=== PATIENT | female | born 1945 | race Caucasian/White ===

== ENCOUNTER 2018-07-17 23:16 | Observation (INO) ==
[2018-07-17] MEDS ORDERED: Ketorolac Inj 30 MG/ML (IVP) Vial IV.PUSH ONE (23:49)
--- NOTE | 2018-07-17 23:54 | ED ---
HPI General Chief complaint: Abdominal Pain Stated complaint: lt side pain Time Seen by Provider: 07/17/18 23:45 Source: patient Mode of arrival: ambulatory Limitations: no limitations History of Present Illness HPI narrative: 72yo F with PMH of frequent UTIs here with c/o left sided flank pain radiating to left lower abdomen about 9pm tonight. Associated with nausea. She is currently on cefdinir and pyridium. Denies any fever, chest pain, sob, vomiting, focal weakness or numbness. Related Data Home Medications Medication Instructions Recorded Confirmed No Known Home Medications 07/17/18 07/17/18 Allergies Allergy/AdvReac Type Severity Reaction Status Date / Time morphine Allergy Severe Nausea/Vomi Verified 07/17/18 23:26 ting butorphanol Allergy Mild ANXIETY Verified 07/17/18 23:26 Review of Systems ROS: all other systems reviewed are negative [facility] Medical History Medical History HTN (hypertension) (Acute) History of kidney infection (Acute) Hx of recurrent urinary tract infection (Acute) Pneumonia (Acute) Surgical History Surgical History No history of previous surgery (Acute) Social History Social History Substance History: No History of Abuse Second Hand Smoke Exposure: No Smoking Status: Never smoker How Often Do You Have a Drink Containing Alcohol: 2 to 4 times a month [facility] within the Last 8 Weeks: No Recent Out of Country Travel within the Last 8 Weeks: No Immunization History Tetanus Immunization: <5 Years Exam Narrative Exam Narrative: GENERAL: 72yo F in moderate distress. SKIN: Focused skin assessment warm/dry. HEAD: Atraumatic. Normocephalic. EYES: Pupils equal and round. No scleral icterus. No injection or drainage. ENT: No nasal bleeding or discharge. Mucous membranes pink and moist. NECK: Trachea midline. No JVD. CARDIOVASCULAR: Regular rate and rhythm. No murmur appreciated. RESPIRATORY: No accessory muscle use. Clear to auscultation. Breath sounds equal bilaterally. GASTROINTESTINAL: Abdomen soft, suprapubic ttp. LLQ ttp. BACK: +CVA tenderness on left. MUSCULOSKELETAL: No obvious deformities. No clubbing. No cyanosis. No edema. NEUROLOGICAL: Awake and alert. No obvious cranial nerve deficits. Motor grossly within normal limits. Normal speech. PSYCHIATRIC: Appropriate mood and affect; insight and judgment normal. Course Initial Documented Vital Signs Temperature 98.4 F 07/17/18 23:27 Pulse Rate 86 07/17/18 23:27 Respiratory Rate 20 07/17/18 23:27 Blood Pressure 224/121 H 07/17/18 23:27 Pulse Oximetry 97 07/17/18 23:27 Last Documented Vital Signs Temperature 97.6 F 07/19/18 00:00 Pulse Rate 80 07/19/18 00:00 Respiratory Rate 18 07/19/18 00:00 Blood Pressure 130/64 07/19/18 00:00 Pulse Oximetry 95 07/19/18 00:00 Medical Decision Making [facility] Narrative Medical decision making narrative: 72yo F with frequent UTIs here with left flank pain radiating to left lower abdomen today. Pt is a lot of pain and has nausea as well. Given toradol and zofran. Pain improved but returned. Said morphine gave her nausea and vomiting before but willing to try dilaudid so 0.5mg of dialaudid given. Labs reviewed, no leukocytosis. H/H normal. Creatinine normal. CT a/p- showed 2mm distal left ureteral calculi with mild left hydroureter and hydronephrosis. UA positive for nitrate, pt given ceftriaxone. Pt given another dose of zofran and dilaudid but is still in pain and nauseous. Pt with an infected stone and obstructive uropathy with pain and nausea that is not controlled so will need to admit to the hospital. Medical Screen Exam Complete: Yes Emergency Medical Condition: Yes Differential Diagnosis Differential Diagnosis: Pyeloneprhitis vs. nephrolithiasis vs. diverticulitis Lab Data Result diagrams: 07/17/18 23:43 07/17/18 23:43 Lab Results 07/17/18 07/17/18 07/17/18 Range/Units 23:43 23:43 23:43 CBC w Diff Auto diff final WBC 6.8 (4.0-11.0) th/mm3 RBC 4.79 (4.00-5.30) mil/mm3 Hgb 13.3 (11.6-15.3) gm/dL Hct 40.9 (35.0-46.0) % MCV 85.4 (80.0-100.0) fL MCH 27.8 (27.0-34.0) pg MCHC 32.6 (32.0-36.0) % RDW 12.5 (11.6-17.2) % Plt Count 356 (150-450) th/mm3 MPV 8.1 (7.0-11.0) fL Neut % (Auto) 57.2 (16.0-70.0) % Lymph % (Auto) 30.0 (9.0-44.0) % [place] % (Auto) 6.5 (0.0-8.0) % Eos % (Auto) 5.3 H (0.0-4.0) % Baso % (Auto) 1.0 (0.0-2.0) % Neut # (Auto) 3.9 (1.8-7.7) th/mm3 Lymph # (Auto) 2.0 (1.0-4.8) th/mm3 [place] # (Auto) 0.4 (0.0-0.9) th/mm3 Eos # (Auto) 0.4 (0.0-0.4) th/mm3 Baso # (Auto) 0.1 (0.0-0.2) th/mm3 WBC Differential . Differential Comment . Sodium 142 (136-145) meq/L Potassium 3.5 (3.5-5.1) meq/L Chloride 107 (98-107) meq/L Carbon Dioxide 27.3 (21.0-32.0) meq/L Anion Gap 8 (5-15) meq/L BUN 11 (7-18) mg/dL Creatinine 0.84 (0.50-1.00) mg/dL Estimated GFR 67 L (>89) mL/min Random Glucose 146 H (74-106) mg/dL Calcium 9.0 (8.5-10.1) mg/dL Total Bilirubin 0.3 (0.2-1.0) mg/dL AST 43 H (15-37) U/L ALT 73 H (10-53) U/L Alkaline Phosphatase 95 (45-117) U/L Total Protein 7.7 (6.4-8.2) g/dL Albumin 3.9 (3.4-5.0) g/dL Lipase 130 (73-393) U/L Urine Color [place] H (Yellw/Straw) Urine Clarity Clear (Clear) Urine pH 6.0 (5.0-8.5) Ur Specific [place] 1.025 (1.002-1.035) Urine Protein 30 H (Neg-Trace) mg/dL Urine Glucose (UA) 100 H (Negative) mg/dL Urine Ketones Trace H (Negative) mg/dL Urine Occult Blood Small H (Negative) Urine Nitrate Positive H (Negative) Urine Bilirubin Negative (Negative) Urine Urobilinogen 4.0 H (Less than 2) mg/dL Ur Leukocyte Esterase Trace H (Negative) Urine RBC 4-15 H (0-3) /hpf Urine WBC 9-20 H (0-5) /hpf Ur Squamous Epith Cells 0-5 (0-5) /hpf Amorphous Sediment Few H (None) /hpf Urine Mucus Few H (Occasional) /lpf Micro UA Comment Culture indicated Ur Microscopic Review Microscopic reviewed Urine Culture Comments Culture indicated Imaging Data Radiologist's impression: Abdomen/Pelvis CT 07/18/18 00:11 CONCLUSION: 1. 2 mm distal left ureteral calculus. Mild left hydroureter. Mild left hydronephrosis. 2. Punctate renal calculi seen bilaterally. 3. Large gallstone in the gallbladder. No pericholecystic inflammatory changes. Discharge Plan Discharge Disposition Patient Disposition: ED Admit(ED Internal Use Only) Discharge Order Discharge Orders: ED Use Only Admit Order (Routine); Ordered 07/18/18 Ordered By: Kanchan Curran Discharge Details Diagnosis: Obstructive uropathy Physicians Team ED Provider: Kanchan Curran Primary Care Provider: Yobani Zhao Attending Provider: Sean Dee Status ED Status: Left Department Discharge Information Discharge Date/Time: 07/18/18 03:55
[2018-07-18 00:02] LABS: Baso # (Auto) 0.1 th/mm3 (0.0-0.2); Eos # (Auto) 0.4 th/mm3 (0.0-0.4); Eos % (Auto) 5.3 % (0.0-4.0); Hematocrit 40.9 % (35.0-46.0); Hemoglobin 13.3 gm/dL (11.6-15.3); Mean Corpuscular HGB Conc 32.6 % (32.0-36.0); Mean Corpuscular Hemoglobin 27.8 pg (27.0-34.0); Mean Corpuscular Volume 85.4 fL (80.0-100.0); Mean Platelet Volume 8.1 fL (7.0-11.0); Mono # (Auto) 0.4 th/mm3 (0.0-0.9); Mono % (Auto) 6.5 % (0.0-8.0); Neut # (Auto) 3.9 th/mm3 (1.8-7.7); Neut % (Auto) 57.2 % (16.0-70.0); Platelet Count 356 th/mm3 (150-450); Red Blood Count 4.79 mil/mm3 (4.00-5.30); Red Cell Distribution Width 12.5 % (11.6-17.2); White Blood Count 6.8 th/mm3 (4.0-11.0)
[2018-07-18 00:07] LABS: Bilirubin,Urine Negative (Negative); Clarity,Urine Clear (Clear); Glucose,Urine (UA) 100 mg/dL (Negative); Leukocyte Esterase,Urine Trace (Negative); Nitrite,Urine Positive (Negative); Specific Gravity,Urine 1.025 (1.002-1.035)
[2018-07-18 00:11] LABS: Chloride 107 meq/L (98-107); Potassium 3.5 meq/L (3.5-5.1); Sodium 142 meq/L (136-145)
[2018-07-18 00:15] LABS: Albumin 3.9 g/dL (3.4-5.0); Anion Gap 8 meq/L (5-15); Blood Urea Nitrogen 11 mg/dL (7-18); Carbon Dioxide 27.3 meq/L (21.0-32.0); Glucose,Random 146 mg/dL (74-106); Lipase 130 U/L (73-393)
[2018-07-18 00:16] LABS: Color,Urine Orange (Yellw/Straw)
[2018-07-18 00:18] LABS: Alanine Aminotransferase 73 U/L (10-53); Aspartate Aminotransferase 43 U/L (15-37); Glomerular Filtration Rate 67 mL/min (>89)
[2018-07-18 00:19] LABS: Total Protein 7.7 g/dL (6.4-8.2)
[2018-07-18 00:20] LABS: Amorphous Sediment,Urine Few /hpf; Mucus,Urine Few /lpf (Occasional); Squamous Epithelial Cell,Urine 0-5 /hpf (0-5)
[2018-07-18 00:21] LABS: Alkaline Phosphatase 95 U/L (45-117)
[2018-07-18] MEDS ORDERED: HYDROmorphone PF Inj 0.5 MG/0.5 ML Syringe IV.PUSH STA (00:36)
--- NOTE | 2018-07-18 00:36 | CT ---
EXAM DATE: 07/18/2018 12:25 AM EST AGE/SEX: 72 years / Female INDICATIONS: Left flank pain. CLINICAL DATA: This is the patient's initial encounter. Patient reports that signs and symptoms have been present for 1 day and indicates a pain score of 10/10. MEDICAL/SURGICAL HISTORY: None. None. RADIATION DOSE: 11.13 CTDI (mGy) COMPARISON: No prior exams available for comparison. TECHNIQUE: Multiple contiguous axial images were obtained through the abdomen. Images were obtained using multiple row detector helical technique. Using automated exposure control and adjustment of the mA and/or kV according to patient size, radiation dose was kept as low as reasonably achievable to o btain optimal diagnostic quality images. DICOM format image data is available electronically for rev iew and comparison. FINDINGS: Lower Lungs: The visualized lower lungs are clear. Liver: Small calcifications centrally in the liver. Diffuse hypodensity suggesting hepatic steatosis with relative sparing around the gallbladder fossa. Large 3 cm calcified gallstone in the gallbladder . No pericholecystic inflammatory changes. Spleen: Multiple calcified granulomas in the spleen. Pancreas: Unremarkable without mass or calcification. Kidneys: 2 mm calculus in the distal left ureter just above the ureterovesical junction. Mild diffus e left hydroureter. Mild left hydronephrosis. 2 mm calculus in the upper pole of the left kidney and 2 mm calculus in the anterior midpole of the left kidney. 2 mm calculus in the lower pole of the righ t kidney. No evidence of hydronephrosis on the right. Adrenal Glands: Unremarkable. Aorta: Aortic calcification. Aortic diameter within normal limits. Bowel/Mesentery: Scattered colonic diverticula. No evidence of bowel dilatation. No free air or free fluid. Appendix within normal limits. Abdominal Wall: Intact. Retroperitoneum: Unremarkable. Bladder: Contours are smooth. Reproductive Organs: No abnormal masses or calcifications seen. Inguinal: The inguinal region is unremarkable without evidence of adenopathy. Bony Structures: Unremarkable. CONCLUSION: 1. 2 mm distal left ureteral calculus. Mild left hydroureter. Mild left hydronephrosis. 2. Punctate renal calculi seen bilaterally. 3. Large gallstone in the gallbladder. No pericholecystic inflammatory changes. Electronically signed by: Rashel Eric MD 07/18/2018 12:35 AM EST
[2018-07-18] MEDS ORDERED: HYDROmorphone PF Inj 0.5 MG/0.5 ML Syringe IV.PUSH ONE (02:17)
[2018-07-18] MEDS ORDERED: Naloxone Inj 0.4 MG/ML Vial IV.PUSH PRN (02:50)
[2018-07-18] MEDS ORDERED: Acetaminophen 325 MG Tablet PO PRN (02:51)
[2018-07-18] MEDS ORDERED: Bisacodyl 10 MG Supp RECTAL PRN (02:51)
[2018-07-18] MEDS: Sod Chloride 0.9% Inj 1,000 ML IV.CONT SCH ×3 (03:08→22:24)
[2018-07-18] MEDS ORDERED: HYDROmorphone PF Inj 2 MG/ML Vial IV.PUSH PRN ×2 (10:06→10:53)
--- NOTE | 2018-07-18 11:02 | P.HPIM ---
History of Present Illness Primary Care Physician: Yobani Zhao MD Chief Complaint: Nausea, pain History of Present Illness: The patient is a 72-year-old female with past medical history pneumonia, UTI and hypertension who is presenting to the hospital with severe nausea and vomiting as well as left-sided pain. The patient states that she has a history of frequent urinary tract infections. She says over the past few days her back started hurting her on the left side. She also develops nausea and vomiting at that time. She says the pain got quite severe and started at the left lower back and radiated to the front and down her pelvis. She says that she has not been able to eat anything and has been vomiting regularly. She said she had some antibiotics at home that she tried taking. She says she does have a urologist and last saw the urologist about 3 months ago. The patient currently rates her pain as an 8 out of 10 in severity. She says she would like to try drinking a Coke. Review of Systems All other systems reviewed negative except as stated in HPI [facility] - History History Provided By: Patient - Medical History Medical History: Medical History (Last Updated 07/18/18 @ 10:59 by Sean Dee DO) HTN (hypertension) History of kidney infection Hx of recurrent urinary tract infection Pneumonia - Surgical History Surgical History: Surgical History (Last Updated 07/17/18 @ 23:39 by Bell Rice RN) No history of previous surgery - Social History I have reviewed the patient's Social History: Yes - Tobacco History Second Hand Smoke Exposure: No Tobacco Use In Past 30 Days: No Smoking Status: Never smoker - Alcohol History How Often Do You Have a Drink Containing Alcohol: 2 to 4 times a month - Substance Use History Substance History: No History of Abuse - Travel History Recent Travel in the [place] Within the Last 8 Weeks: No Recent Travel Out of the Country Within the Last 8 Weeks: No - Immunization History Tetanus Immunization: <5 Years Medications and Allergies Active Medications: Active Medications Acetaminophen (Tylenol) 650 mg PO Q4H PRN PRN Reason: Temp > 100.4 Al Hydroxide/Mg Hydroxide (Milk Of Magnesia Liq) 30 ml PO Q12H PRN PRN Reason: Mild Constipation Bisacodyl (Dulcolax Supp) 10 mg RECTAL DAILY PRN PRN Reason: SEVERE CONSITIPATION Hydromorphone HCl (Dilaudid Pf Inj) 1 mg IV.PUSH Q3H PRN PRN Reason: BREAKTHROUGH PAIN Sodium Chloride (Ns Inj) 1,000 mls @ 150 mls/hr IV.CONT .Q6H40M [facility] Last Infusion: 07/18/18 03:55 Dose: 100 mls/hr Ceftriaxone Sodium 1,000 mg/ (Sodium Chloride) 100 mls @ 200 mls/hr IV.SIG Q24H [facility] Ketorolac Tromethamine (Toradol Inj) 30 mg IV.PUSH Q6H [facility] Stop: 07/19/18 11:01 Lactulose (Lactulose Liq) 30 ml PO DAILY PRN PRN Reason: SEVERE CONSITIPATION Naloxone HCl (Narcan Inj) 0.4 mg IV.PUSH UNSCH PRN PRN Reason: SEE LABEL COMMENTS Ondansetron HCl (Zofran Inj) 4 mg IV.PUSH Q6H PRN PRN Reason: NAUSEA OR VOMITING Last Admin: 07/18/18 06:26 Dose: 4 mg Oxycodone HCl (Roxicodone) 5 mg PO Q4H PRN PRN Reason: PAIN SCALE 3 TO 5 Oxycodone HCl (Roxicodone) 10 mg PO Q4H PRN PRN Reason: PAIN SCALE 6 TO 10 Last Admin: 07/18/18 06:23 Dose: 10 mg Prochlorperazine Edisylate (Compazine Inj) 10 mg IV.PUSH Q6H PRN PRN Reason: SEVERE NAUSEA Sennosides (Senokot) 17.2 mg PO Q12H PRN PRN Reason: Moderate Constipation Sodium Chloride (Ns Flush) 2 ml IV.FLUSH BID [facility] Last Admin: 07/18/18 09:07 Dose: Not Given Sodium Chloride (Ns Flush) 2 ml IV.FLUSH PRN PRN PRN Reason: FLUSH AFTER USING IV ACCESS Tamsulosin HCl (Flomax) 0.4 mg PO DAILY [facility] Allergies Allergy/AdvReac Type Severity Reaction Status Date / Time morphine Allergy Severe Nausea/Vomi Verified 07/17/18 23:26 ting butorphanol Allergy Mild ANXIETY Verified 07/17/18 23:26 Home Medications Medication Instructions Recorded Confirmed Type No Known Home Medications 07/17/18 07/17/18 History Exam Vital signs: Vital Signs 07/17/18 23:27 07/18/18 00:01 07/18/18 00:27 Temperature 98.4 F Pulse Rate 86 75 Respiratory Rate 20 18 18 Blood Pressure 224/121 H 207/107 H Pulse Oximetry 97 97 07/18/18 01:06 07/18/18 03:07 07/18/18 03:31 Temperature Pulse Rate 74 71 Respiratory Rate 18 16 18 Blood Pressure 176/96 H 120/68 Pulse Oximetry 98 96 07/18/18 04:00 07/18/18 08:00 Temperature 98.0 F 96.9 F L Pulse Rate 71 75 Respiratory Rate 18 18 Blood Pressure 152/71 H 137/63 Pulse Oximetry 95 95 Intake & Output 07/17/18 07/18/18 07/18/18 18:59 06:59 18:59 Intake Total 180 / 180 Output Total 0 / 0 Balance 180 / 180 Weight 96.6 kg Intake: IV 180 / 180 NS Inj 1,000 ML @ 100 mls/hr IV 80 / 80 .CONT .Q10H [facility] Rx#:[id number] Rocephin Inj 1,000 MG In NS Inj 100 / 100 100 ML @ 200 mls/hr IV.SIG ONCE ONE Rx#:[id number] Oral 0 / 0 Output: Urine 0 / 0 Other: Weight On Admission 63.6 kg Narrative: GENERAL: Appears uncomfortable. SKIN: Focused skin assessment warm/dry. HEAD: Atraumatic. Normocephalic. EYES: Pupils equal and round. No scleral icterus. No injection or drainage. ENT: No nasal bleeding or discharge. Mucous membranes pink and moist. NECK: Trachea midline. No JVD. CARDIOVASCULAR: Regular rate and rhythm. No murmur appreciated. RESPIRATORY: No accessory muscle use. Clear to auscultation. Breath sounds equal bilaterally. GASTROINTESTINAL: Abdomen soft, suprapubic ttp, LLQ ttp. BACK: +CVA tenderness on left. MUSCULOSKELETAL: No obvious deformities. No clubbing. No cyanosis. No edema. NEUROLOGICAL: Awake and alert. No obvious cranial nerve deficits. Motor grossly within normal limits. Normal speech. PSYCHIATRIC: Appropriate mood and affect; insight and judgment normal. Results - Labs CBC & Chem 7: 07/17/18 23:43 07/17/18 23:43 Labs: Short CBC 07/17/18 Range/Units 23:43 WBC 6.8 (4.0-11.0) th/mm3 Hgb 13.3 (11.6-15.3) gm/dL Hct 40.9 (35.0-46.0) % Plt Count 356 (150-450) th/mm3 BMP 07/17/18 23:43 Sodium 142 Potassium 3.5 Chloride 107 Carbon Dioxide 27.3 BUN 11 Creatinine 0.84 Calcium 9.0 Liver Function 07/17/18 Range/Units 23:43 Total Bilirubin 0.3 (0.2-1.0) mg/dL AST 43 H (15-37) U/L ALT 73 H (10-53) U/L Alkaline Phosphatase 95 (45-117) U/L Albumin 3.9 (3.4-5.0) g/dL Urine 07/17/18 Range/Units 23:43 Urine Color [place] H (Yellw/Straw) Urine Clarity Clear (Clear) Urine pH 6.0 (5.0-8.5) Ur Specific [place] 1.025 (1.002-1.035) Urine Protein 30 H (Neg-Trace) mg/dL Urine Glucose (UA) 100 H (Negative) mg/dL - Imaging Impressions Abdomen/Pelvis CT 07/18/18 00:11 CONCLUSION: 1. 2 mm distal left ureteral calculus. Mild left hydroureter. Mild left hydronephrosis. 2. Punctate renal calculi seen bilaterally. 3. Large gallstone in the gallbladder. No pericholecystic inflammatory changes. Caprini VTE Risk Assessment Caprini VTE Risk Assessment: Moderate/High Risk (score >= 2) Caprini Risk Assessment Model: Point Value = 1 Point Value = 2 Point Value = 3 Point Value = 5 Age 41-60 Minor surgery BMI > 25 kg/m2 Swollen legs Varicose veins or History of unexplained or recurrent spontaneous Oral contraceptives or hormone replacement Sepsis (< 1 month) Serious lung disease, including pneumonia (< 1 month) Abnormal pulmonary function Acute myocardial infarction Congestive heart failure (< 1 month) History of inflammatory bowel disease Medical patient at bed rest Age 61-74 Arthroscopic surgery Major open surgery (> 45 min) Laparoscopic surgery (> 45 min) Malignancy Confined to bed (> 72 hours) Immobilizing plaster cast Central venous access Age >= 75 History of VTE Family history of VTE Factor V Leiden Prothrombin [id number] Lupus anticoagulant Anticardiolipin antibodies Elevated serum homocysteine Heparin-induced thrombocytopenia Other congenital or acquired thrombophilia Stroke (< 1 month) Elective arthroplasty Hip, pelvis, or leg fracture Acute spinal cord injury (< 1 month) Prophylaxis Regimen: Total Risk Factor Score Risk Level Prophylaxis Regimen 0-1 Low Early ambulation 2 Moderate Order ONE of the following: *Sequential Compression Device (SCD) *Heparin 5000 units SQ BID 3-4 Higher Order ONE of the following medications: *Heparin 5000 units SQ TID *Enoxaparin/Lovenox 40 mg SQ daily (WT < 150 kg, CrCl > 30 mL/min) *Enoxaparin/Lovenox 30 mg SQ daily (WT < 150 kg, CrCl > 10-29 mL/min) *Enoxaparin/Lovenox 30 mg SQ BID (WT < 150 kg, CrCl > 30 mL/min) AND/OR *Sequential Compression Device (SCD) 5 or more Highest Order ONE of the following medications: *Heparin 5000 units SQ TID (Preferred with Epidurals) *Enoxaparin/Lovenox 40 mg SQ daily (WT < 150 kg, CrCl > 30 mL/min) *Enoxaparin/Lovenox 30 mg SQ daily (WT < 150 kg, CrCl > 10-29 mL/min) *Enoxaparin/Lovenox 30 mg SQ BID (WT < 150 kg, CrCl > 30 mL/min) AND *Sequential Compression Device (SCD) Assessment and Plan - Plan Acute nephrolithiasis The patient presents with severe left-sided abdominal and back pain as well as severe nausea and vomiting. CT of the abdomen demonstrates a distal left-sided renal calculus. The patient endorses a history of chronic UTIs. UA is indicative of infection. -Continue IV fluids. -Add Flomax. -Pain control and antiemetics as needed. -Continue IV ceftriaxone. -Follow urine culture. -consult urology as needed. Follows with Dr. Hernandez. HTN Exacerbated by pain. -pain control. -clonidine as needed. Hyperglycemia Likely a stress reaction. -check an A1c. Elevated LFTs Mild. -trend LFTs. PPx: Ambulation H&P: Quality - VTE Deep Vein Thrombosis/Pulmonary Embolism Present on Admission: No
[2018-07-18] MEDS: Ketorolac Inj 30 MG/ML (IVP) Vial IV.PUSH SCH ×2 (12:10→17:18)
[2018-07-19] MEDS ORDERED: Melatonin 5 MG Tablet PO PRN (00:01)
[2018-07-19] MEDS: Ketorolac Inj 30 MG/ML (IVP) Vial IV.PUSH SCH ×2 (00:11→05:06)
[2018-07-19] MEDS: Sod Chloride 0.9% Inj 1,000 ML IV.CONT SCH ×4 (00:42→17:18)
[2018-07-19 06:39] LABS: Baso % (Auto) 0.3 % (0.0-2.0); Eos # (Auto) 0.1 th/mm3 (0.0-0.4); Eos % (Auto) 1.8 % (0.0-4.0); Hematocrit 35.5 % (35.0-46.0); Hemoglobin 11.4 gm/dL (11.6-15.3); Lymph # (Auto) 1.6 th/mm3 (1.0-4.8); Lymph % (Auto) 20.2 % (9.0-44.0); Mean Corpuscular HGB Conc 32.1 % (32.0-36.0); Mean Corpuscular Hemoglobin 27.4 pg (27.0-34.0); Mean Corpuscular Volume 85.3 fL (80.0-100.0); Mean Platelet Volume 8.2 fL (7.0-11.0); Mono # (Auto) 0.7 th/mm3 (0.0-0.9); Mono % (Auto) 8.4 % (0.0-8.0); Neut # (Auto) 5.5 th/mm3 (1.8-7.7); Neut % (Auto) 69.3 % (16.0-70.0); Platelet Count 276 th/mm3 (150-450); Red Blood Count 4.16 mil/mm3 (4.00-5.30); Red Cell Distribution Width 12.6 % (11.6-17.2); White Blood Count 7.9 th/mm3 (4.0-11.0)
[2018-07-19 06:45] LABS: Chloride 111 meq/L (98-107); Potassium 3.5 meq/L (3.5-5.1); Sodium 144 meq/L (136-145)
[2018-07-19 07:20] LABS: Alanine Aminotransferase 49 U/L (10-53); Albumin 3.3 g/dL (3.4-5.0); Alkaline Phosphatase 82 U/L (45-117); Anion Gap 8 meq/L (5-15); Aspartate Aminotransferase 27 U/L (15-37); Blood Urea Nitrogen 11 mg/dL (7-18); Carbon Dioxide 24.7 meq/L (21.0-32.0); Glomerular Filtration Rate 69 mL/min (>89); Glucose,Random 115 mg/dL (74-106); Total Protein 6.5 g/dL (6.4-8.2)
--- NOTE | 2018-07-19 08:57 | P.PNIM ---
Subjective Interval history: The patient said that her nausea has resolved. She thinks that the Toradol made her feel anxious. She says her pain comes and goes as waves. She believes she may have passed her stone. She would like to try a regular diet. She says she shakes at times. She has some pain on urination last night. Physical Exam Vital signs: Vital Signs 07/18/18 11:52 07/18/18 15:48 07/18/18 18:29 Temperature 96.2 F L 97.2 F L 97.5 F L Pulse Rate 74 66 85 Respiratory Rate 18 18 18 Blood Pressure 158/73 H 114/64 149/71 H Pulse Oximetry 95 95 07/18/18 20:00 07/19/18 00:00 Temperature 97.4 F L 97.6 F Pulse Rate 87 80 Respiratory Rate 18 Blood Pressure 143/67 H 130/64 Pulse Oximetry 95 95 Intake & Output 07/18/18 07/19/18 07/19/18 18:59 06:59 18:59 Intake Total 1200 / 1200 1220 / 1220 Output Total 400 / 400 Balance 1200 / 1200 820 / 820 Weight 63.4 kg Intake: IV 1000 / 1000 1100 / 1100 NS Inj 1,000 ML @ 150 mls/hr IV 1000 / 1000 1000 / 1000 .CONT .Q6H40M [facility] Rx#: [id number] Rocephin Inj 1,000 MG In NS Inj 100 / 100 100 ML @ 200 mls/hr IV.SIG Q24H [facility] Rx#:[id number] Oral 200 / 200 120 / 120 Output: Urine 400 / 400 Other: # Voids 4 Date of Last Bowel Movement 07/17/18 Narrative: GENERAL: No distress. SKIN: Focused skin assessment warm/dry. HEAD: Atraumatic. Normocephalic. EYES: Pupils equal and round. No scleral icterus. No injection or drainage. ENT: No nasal bleeding or discharge. Mucous membranes pink and moist. NECK: Trachea midline. No JVD. CARDIOVASCULAR: Regular rate and rhythm. No murmur appreciated. RESPIRATORY: No accessory muscle use. Clear to auscultation. Breath sounds equal bilaterally. GASTROINTESTINAL: Abdomen soft, nontender. No CVA tenderness. MUSCULOSKELETAL: No obvious deformities. No clubbing. No cyanosis. No edema. NEUROLOGICAL: Awake and alert. No obvious cranial nerve deficits. Motor grossly within normal limits. Normal speech. PSYCHIATRIC: Appropriate mood and affect; insight and judgment normal. Results - Labs CBC & Chem 7: 07/19/18 05:40 07/19/18 05:40 Laboratory Results - last 24 hr 07/19/18 07/19/18 05:40 05:40 CBC w Diff Auto diff final WBC 7.9 RBC 4.16 Hgb 11.4 L Hct 35.5 MCV 85.3 MCH 27.4 MCHC 32.1 RDW 12.6 Plt Count 276 MPV 8.2 Neut % (Auto) 69.3 Lymph % (Auto) 20.2 [place] % (Auto) 8.4 H Eos % (Auto) 1.8 Baso % (Auto) 0.3 Neut # (Auto) 5.5 Lymph # (Auto) 1.6 [place] # (Auto) 0.7 Eos # (Auto) 0.1 Baso # (Auto) 0.0 WBC Differential . Differential Comment . Sodium 144 Potassium 3.5 Chloride 111 H Carbon Dioxide 24.7 Anion Gap 8 BUN 11 Creatinine 0.82 Estimated GFR 69 L Random Glucose 115 H Calcium 8.0 L D Total Bilirubin 0.5 AST 27 ALT 49 Alkaline Phosphatase 82 Total Protein 6.5 D Albumin 3.3 L D Assessment and Plan - Plan Acute nephrolithiasis The patient presents with severe left-sided abdominal and back pain as well as severe nausea and vomiting. CT of the abdomen demonstrates a distal left-sided renal calculus. The patient endorses a history of chronic UTIs. UA is indicative of infection. -Continue IV fluids. -Added Flomax. -Pain control and antiemetics as needed. -Continue IV ceftriaxone. -Follow urine and blood cultures. -consult urology as needed. Follows with Dr. Hernandez. HTN Exacerbated by pain. Improved. -pain control. -clonidine as needed. Hyperglycemia Likely a stress reaction. Improved. -check an A1c. Elevated LFTs Mild. -trend LFTs. Resolved. PPx: Ambulation Discharge Planning: Await culture results. Anticipate d/c home tonight or in AM
[2018-07-19] MEDS: Ibuprofen 600 MG Tablet PO SCH ×2 (13:54→22:11)
[2018-07-19 16:59] LABS: Hemoglobin A1c 5.6 % (4.3-6.0)
[2018-07-20 00:11] VITALS: PULSE 68; O2SAT 96
[2018-07-20] MEDS: Sod Chloride 0.9% Inj 1,000 ML IV.CONT SCH (05:32)
[2018-07-20] MEDS: Ibuprofen 600 MG Tablet PO SCH (05:32)
--- NOTE | 2018-07-20 08:52 | P.DS ---
Date of admission: 07/18/18 02:31 Primary care physician: Yobani Zhao MD Brief History from admission: The patient is a 72-year-old female with past medical history pneumonia, UTI and hypertension who is presenting to the hospital with severe nausea and vomiting as well as left-sided pain. The patient states that she has a history of frequent urinary tract infections. She says over the past few days her back started hurting her on the left side. She also develops nausea and vomiting at that time. She says the pain got quite severe and started at the left lower back and radiated to the front and down her pelvis. She says that she has not been able to eat anything and has been vomiting regularly. She said she had some antibiotics at home that she tried taking. She says she does have a urologist and last saw the urologist about 3 months ago. The patient currently rates her pain as an 8 out of 10 in severity. She says she would like to try drinking a Coke. Patient update on day of discharge: The patient was feeling well. Her pain was controlled. She was tolerating a diet. She was concerned about her blood pressure being high over the past few months. Discussed with nursing. DS: Diagnosis - Discharge Diagnosis (1) Obstructive uropathy Status: Acute DS: Medications - Discharge Medications Prescriptions: amlodipine 5 mg PO DAILY #30 tab cefuroxime axetil 250 mg PO Q12H #10 tab phenazopyridine 200 mg PO TIDAC #6 tab tamsulosin 0.4 mg PO DAILY #7 cap DS: Summary Hospital Course: Acute nephrolithiasis The patient presented with severe left-sided abdominal and back pain as well as severe nausea and vomiting. CT of the abdomen demonstrated a distal left-sided renal calculus. The patient endorses a history of chronic UTIs. UA was indicative of infection. Urine culture with no growth at this time. We continued IV fluids and added Flomax. She received pain control and antiemetics as needed. We continued IV ceftriaxone and will switch to PO Ceftin at this time. Blood cultures with NGTD. The pt will follow up with her urologist upon discharge. She was discharged with a short course of Pyridium per request. HTN The pt received pain control and clonidine as needed. She will be discharged on amlodipine 5 mg daily and will follow up with her PCP. Hyperglycemia A1c was 5.6%. - Time Spent with Patient Total time spent providing and/or coordinating discharge services: Less than 30 minutes - Quality: VTE Deep Vein Thrombosis/Pulmonary Embolism Present on Admission: No Exam Vital signs: Vital Signs 07/19/18 12:00 07/19/18 16:00 07/19/18 20:00 Temperature 96.4 F L 96.4 F L 97.4 F L Pulse Rate 70 76 75 Respiratory Rate 20 20 20 Blood Pressure 138/65 149/70 H 151/80 H Pulse Oximetry 98 97 95 07/20/18 00:10 Temperature 97.7 F Pulse Rate 68 Respiratory Rate 20 Blood Pressure 151/81 H Pulse Oximetry 96 Intake & Output 07/19/18 07/20/18 07/20/18 18:59 06:59 18:59 Intake Total 2600 / 2600 1100 / 1100 Output Total 400 / 400 1999 Balance 2200 / 2200 -900 / -900 Weight 66.1 kg Intake: IV 1999 1100 / 1100 NS Inj 1,000 ML @ 75 mls/hr IV. 1999 1000 / 1000 CONT .[id number] [facility] Rx#: [id number] Rocephin Inj 1,000 MG In NS Inj 100 / 100 100 ML @ 200 mls/hr IV.SIG Q24H [facility] Rx#:[id number] Oral 600 / 600 Output: Urine 400 / 400 1999 Other: # Voids 1,450 4 Date of Last Bowel Movement 07/17/18 # Bowel Movements 0 Narrative: GENERAL: No distress. SKIN: Focused skin assessment warm/dry. HEAD: Atraumatic. Normocephalic. EYES: Pupils equal and round. No scleral icterus. No injection or drainage. ENT: No nasal bleeding or discharge. Mucous membranes pink and moist. NECK: Trachea midline. No JVD. CARDIOVASCULAR: Regular rate and rhythm. No murmur appreciated. RESPIRATORY: No accessory muscle use. Clear to auscultation. Breath sounds equal bilaterally. GASTROINTESTINAL: Abdomen soft, nontender. No CVA tenderness. MUSCULOSKELETAL: No obvious deformities. No clubbing. No cyanosis. No edema. NEUROLOGICAL: Awake and alert. No obvious cranial nerve deficits. Motor grossly within normal limits. Normal speech. PSYCHIATRIC: Appropriate mood and affect; insight and judgment normal. Results Procedures completed during hospitalization: None Labs on day of discharge: Labs from last 24 hours 07/19/18 05:40 Hemoglobin A1c 5.6 Preliminary micro results at discharge 07/17/18 23:43 Urine Culture - Preliminary Clean Catch Urine No growth in 24 hours 07/18/18 19:55 Aerobic Blood Culture - Preliminary Blood - Peripheral No growth in 1 day Anaerobic Blood Culture - Preliminary No growth in 1 day 07/18/18 20:00 Aerobic Blood Culture - Preliminary Blood - Peripheral No growth in 1 day Anaerobic Blood Culture - Preliminary No growth in 1 day - Impressions ITS Impressions Abdomen/Pelvis CT 07/18/18 00:11 CONCLUSION: 1. 2 mm distal left ureteral calculus. Mild left hydroureter. Mild left hydronephrosis. 2. Punctate renal calculi seen bilaterally. 3. Large gallstone in the gallbladder. No pericholecystic inflammatory changes. Discharge Plan - Discharge Disposition Patient Disposition: 01 Discharge Home - Discharge Condition Condition: Good - Discharge Order Discharge Orders: Discharge Order (Routine); Ordered 07/20/18 Ordered By: Sean Dee - Discharge Details Anticipated Discharge Date: 07/20/18 - Physicians Team Primary Care Provider: Yobani Zhao Attending Provider: Sean Dee
[2018-07-20 08:59] VITALS: BP 146/67; RESP 15; TEMP 97
== END 2018-07-20 10:09 | disposition home or self-care (01) ==
LOC: EDBD → PHEDA 23:16 → PHED 23:16 → PH3 07-18 03:54
PROVIDERS: ADMIT Hospitalist; ATTEND Hospitalist